=== PATIENT | male | born 1965 | race Caucasian/White ===

== ENCOUNTER → 2017-07-11 10:17 | Outpatient (CLI) | payer BC, SELFPAY ==
[2017-07-11 12:28] LABS: Anion Gap 8 (5-15); BUN 12 mg/dL (7-18); BUN/Creat Ratio 13.6 RATIO (10-20); Calcium,Total 8.6 mg/dL (8.5-10.1); Chloride 105 mmol/L (98-107); Cholesterol 177 mg/dL (200); Creatinine, Serum 0.88 mg/dL (0.70-1.30); EST Glomerular Filtration Rate 96 mL/min (>60); Est Glom Filt Rate - Afr Amer 117 mL/min (>60); Glucose 148 mg/dL (74-106); High Density Lipoprotein 53 mg/dL; PSA,Total - Annual Screen 1.01 ng/mL (0.00-4.00); Potassium 3.7 mmol/L (3.5-5.1); Sodium Level 139 mmol/L (136-145); Triglycerides 176 mg/dL; Very Low Density Lipoprotein 35 mg/dL (5-40)
== END ==
PROVIDERS: Family Provider Family Medicine; PCP Family Medicine; Visit Provider Family Medicine
DX: Z00.00 Encounter for general adult medical examination without abnormal findings (principal); Z12.5 Encounter for screening for malignant neoplasm of prostate; I10 Essential (primary) hypertension
CPT/HCPCS: 36415; 80048; 80061; 84153; G0103

== ENCOUNTER → 2018-07-30 08:25 | Outpatient (CLI) | payer OTHER, SELFPAY ==
[2018-07-30 10:34] LABS: ALB/GLOB Ratio 1.3 RATIO (0.9-2.4); AST(SGOT) 25 U/L (15-37); Alanine Aminotransfer ALT/SGPT 29 U/L (16-61); Alkaline Phosphatase 84 U/L (45-117); Anion Gap 6 (5-15); BUN 15 mg/dL (7-18); BUN/Creat Ratio 21.7 RATIO (10-20); Calcium,Total 8.9 mg/dL (8.5-10.1); Chloride 104 mmol/L (98-107); Creatinine, Serum 0.69 mg/dL (0.70-1.30); EST Glomerular Filtration Rate 127 mL/min (>60); Est Glom Filt Rate - Afr Amer 154 mL/min (>60); Globulin 3.1 g/dL (2.2-4.2); Glucose 81 mg/dL (74-106); Potassium 3.9 mmol/L (3.5-5.1); Protein, Total 7.1 g/dL (6.4-8.2); Sodium Level 140 mmol/L (136-145)
[2018-08-01 11:37] LABS: Rubeola IgG Ab > 300.0 AU/mL (Immune >29.9)
== END ==
PROVIDERS: Family Provider Family Medicine; PCP Family Medicine; Referring Provider Family Medicine; Visit Provider Family Medicine
DX: Z11.59 Encounter for screening for other viral diseases (principal); I10 Essential (primary) hypertension
CPT/HCPCS: 36415; 80053; 86765

== ENCOUNTER → 2020-07-29 09:07 | Outpatient (CLI) | payer OTHER, SELFPAY ==
[2016-09-11 06:55] VITALS: BMI 25.3
[2020-07-29 10:45] LABS: Vitamin D,25 Hydroxy 33.6 ng/mL
[2020-07-29 10:59] LABS: Anion Gap 4 (5-15); BUN 13 mg/dL (7-18); BUN/Creat Ratio 17.8 RATIO (10-20); Chloride 103 mmol/L (98-107); Cholesterol 204 mg/dL (200); Creatinine, Serum 0.73 mg/dL (0.70-1.30); EST Glomerular Filtration Rate 118 mL/min (>60); Est Glom Filt Rate - Afr Amer 143 mL/min (>60); Glucose 90 mg/dL (74-106); High Density Lipoprotein 56 mg/dL; PSA,Total - Annual Screen 2.26 ng/mL (0.00-4.00); Sodium Level 137 mmol/L (136-145); Triglycerides 112 mg/dL; Very Low Density Lipoprotein 22 mg/dL (5-40)
== END ==
PROVIDERS: PCP Family Medicine; Referring Provider Family Medicine; Visit Provider Family Medicine
DX: Z00.00 Encounter for general adult medical examination without abnormal findings (principal); Z12.5 Encounter for screening for malignant neoplasm of prostate
CPT/HCPCS: 36415; 80048; 80061; 82306; 84153; 84403; G0103

== ENCOUNTER → 2021-08-11 | Outpatient (CLI) | payer OTHER, SELFPAY ==
[2021-08-11 18:31] LABS: Anion Gap 6 (5-15); BUN 16 mg/dL (7-18); BUN/Creat Ratio 20.5 RATIO (10-20); Calcium,Total 9.5 mg/dL (8.5-10.1); Chloride 105 mmol/L (98-107); Cholesterol 218 mg/dL (200); Creatinine, Serum 0.78 mg/dL (0.70-1.30); EST Glomerular Filtration Rate 109 mL/min (>60); Est Glom Filt Rate - Afr Amer 132 mL/min (>60); Glucose 83 mg/dL (74-106); High Density Lipoprotein 61 mg/dL; Potassium 3.9 mmol/L (3.5-5.1); Sodium Level 139 mmol/L (136-145); Triglycerides 56 mg/dL; Very Low Density Lipoprotein 11 mg/dL (5-40)
== END | disposition home or self-care (01) ==
LOC: MFPLAB 14:36
PROVIDERS: PCP Family Medicine; Referring Provider Family Medicine; Visit Provider Family Medicine
DX: Z00.00 Encounter for general adult medical examination without abnormal findings (principal)
CPT/HCPCS: 36415; 80048; 80061

== ENCOUNTER → 2022-08-17 | Outpatient (CLI) | payer OTHER, SELFPAY ==
[2022-08-17 10:44] LABS: Anion Gap 7 (5-15); BUN 19 mg/dL (7-18); BUN/Creat Ratio 25.7 RATIO (10-20); Calcium,Total 9.3 mg/dL (8.5-10.1); Chloride 105 mmol/L (98-107); Cholesterol 239 mg/dL (200); Creatinine, Serum 0.74 mg/dL (0.70-1.30); EST Glomerular Filtration Rate 116 mL/min (>60); Est Glom Filt Rate - Afr Amer 140 mL/min (>60); Glucose 95 mg/dL (74-106); High Density Lipoprotein 64 mg/dL; PSA,Total - Annual Screen 2.53 ng/mL (0.00-4.00); Potassium 4.5 mmol/L (3.5-5.1); Sodium Level 143 mmol/L (136-145); Triglycerides 69 mg/dL; Very Low Density Lipoprotein 14 mg/dL (5-40)
== END | disposition home or self-care (01) ==
PROVIDERS: PCP Family Medicine; Visit Provider Family Medicine
DX: Z00.00 Encounter for general adult medical examination without abnormal findings (principal)
CPT/HCPCS: 36415; 80048; 80061; 84153; G0103

== ENCOUNTER → 2023-08-30 | Outpatient (CLI) | payer OTHER, SELFPAY ==
[2023-08-30 13:14] LABS: ALB/GLOB Ratio 1.1 RATIO (0.9-2.4); AST(SGOT) 21 U/L (15-37); Alanine Aminotransfer ALT/SGPT 32 U/L (16-61); Albumin, Serum 3.9 g/dL (3.2-5.0); Alkaline Phosphatase 83 U/L (45-117); Anion Gap 6 (5-15); BUN 21 mg/dL (7-18); BUN/Creat Ratio 25.4 RATIO (10-20); Calcium,Total 9.8 mg/dL (8.5-10.1); Chloride 102 mmol/L (98-107); Cholesterol 224 mg/dL (200); Creatinine, Serum 0.83 mg/dL (0.70-1.30); EST Glomerular Filtration Rate 101 mL/min (>60); Est Glom Filt Rate - Afr Amer 122 mL/min (>60); Globulin 3.7 g/dL (2.2-4.2); Glucose 104 mg/dL (74-106); High Density Lipoprotein 70 mg/dL; PSA,Total - Annual Screen 4.77 ng/mL (0.00-4.00); Potassium 4.2 mmol/L (3.5-5.1); Protein, Total 7.6 g/dL (6.4-8.2); Sodium Level 134 mmol/L (136-145); Triglycerides 78 mg/dL; Very Low Density Lipoprotein 16 mg/dL (5-40)
== END | disposition home or self-care (01) ==
LOC: MFPLAB 09:42
PROVIDERS: PCP Family Medicine; Visit Provider Family Medicine
DX: Z00.00 Encounter for general adult medical examination without abnormal findings (principal)
CPT/HCPCS: 36415; 80053; 80061; 84153; 84403; 84443; G0103

== ENCOUNTER → 2024-12-11 | Outpatient (CLI) | payer OTHER, SELFPAY ==
[2024-12-11 17:39] LABS: Hematocrit 43.1 % (40-54); Hemoglobin 14.3 g/dL (13.0-16.5); Immature Granulocytes Count 0.020 X10^3/uL (0.0-0.0); Mean Corp Hgb Conc 33.2 g/dL (32-36); Mean Corpuscular Volume 92.9 fL (80-94); Mean Platelet Vol. 9.6 fl (6.2-12.0); NRBC Flagged by Analyzer 0 % (0-5); Platelet Count 277 K/mm3 (150-450); RBC Distribution Width CV 13.1 % (11.6-14.6); RBC Distribution Width SD 44.5 fl (35.1-43.9); Red Blood Count 4.64 M/mm3 (4.6-6.2); White Blood Count 7.6 K/mm3 (4.4-11.0)
[2024-12-11 18:46] LABS: AST(SGOT) 21 U/L (<=37); Alanine Aminotransfer ALT/SGPT 18 U/L (<=46); Albumin, Serum 4.4 g/dL (3.5-5.0); Alkaline Phosphatase 86 U/L (40-129); Anion Gap 11 (5-15); BUN 17 mg/dL (4-19); BUN/Creat Ratio 19.7 RATIO (10-20); Calcium,Total 9.6 mg/dL (7.6-11.0); Carbon Dioxide 26.9 mmol/L (21.0-32.0); Chloride 100 mmol/L (98-108); Cholesterol 243 mg/dL (<=200); Globulin 2.8 g/dL (2.2-4.2); Glucose 91 mg/dL (70-99); Low Density Lipoprotein Calc. 158 mg/dL; Magnesium 2.0 mg/dL (1.5-2.2); PSA,Total - Annual Screen 1.81 ng/mL (0.02-4.00); Potassium 4.3 mmol/L (3.3-5.1); Triglycerides 82 mg/dL; Very Low Density Lipoprotein 16 mg/dL (5-40); cholesterol:hdl ratio screen 3.54
== END | disposition home or self-care (01) ==
LOC: MFPLAB 15:12
PROVIDERS: PCP Family Medicine; Visit Provider Family Medicine
DX: Z00.00 Encounter for general adult medical examination without abnormal findings (principal); R00.2 Palpitations
CPT/HCPCS: 36415; 80053; 80061; 83735; 84153; 84443; 85025; G0103

== ENCOUNTER → 2025-02-05 | Outpatient (CLI) | payer OTHER, SELFPAY ==
--- NOTE | 2025-02-05 14:45 | ECHOD_ITS ---
Reason For Study Reason For Study: SOB, ATRIAL FIB-FLUTTER Procedure This was a 2D Doppler, Color Flow transthoracic echocardiogram. Exam performed in department. Left Ventricle Normal LV size. The estimated ejection fraction is 55 %. No evidence for diastolic dysfunction. No regional wall motion abnormalities noted. Right Ventricle Normal RV size. Normal systolic function. Atria The left and right atria are normal. No doppler evidence for ASD. Mitral Valve There is no mitral valve stenosis. Trivial mitral valve insufficiency. Tricuspid Valve There is no tricuspid stenosis. Trivial tricuspid valve insufficiency. Unable to estimate RV systolic pressure due to insufficient tricuspid regurgitant envelope. Aortic Valve There is no aortic stenosis. No aortic valve insufficiency. Pulmonic Valve There is no pulmonic valvular stenosis. Trivial pulmonic valve insufficiency. Great Vessels Normal sized aortic root. Pericardium/Pleural No pericardial effusion. MMode/2D Measurements & Calculations LVIDd: 4.8 cm IVSd: 1.0 cm Ao root diam: 3.4 cm LVIDs: 3.1 cm LVPWd: 1.0 cm RVDd: 3.0 cm FS: 36.2 % LAV(MOD-bp): 53.4 ml LVAd ap4: 32.8 cm2 SV(MOD-sp4): 64.8 ml LAV(MOD-bp) Indexed: 28.4 ml/m2 LVLd ap4: 8.5 cm SI(MOD-sp4): 34.5 ml/m2 LAV(MOD-sp2): 48.5 ml EDV(MOD-sp4): 107.3 ml LAV(MOD-sp4): 50.1 ml EDV(sp4-el): 107.5 ml LVAs ap4: 18.6 cm2 LVLs ap4: 7.2 cm ESV(MOD-sp4): 42.4 ml ESV(sp4-el): 41.0 ml EF(MOD-sp4): 60.5 % EF(sp4-el): 61.8 % SV(sp4-el): 66.5 ml LA A4 area: 19.1 cm2 LA dimension(2D): 3.2 cm RA A4 area: 17.3 cm2 TAPSE: 2.2 cm Time Measurements MV dec time: 0.21 sec Doppler Measurements & Calculations MV E max gurpreet: 67.3 cm/sec Lat Peak E' Gurpreet: 11.9 cm/sec Med Peak E' Gurpreet: 8.9 cm/sec MV A max gurpreet: 57.4 cm/sec E/E' lat: 5.6 E/E' med: 7.6 MV E/A: 1.2 Ao V2 max: 123.1 cm/sec LV V1 max: 90.2 cm/sec PA V2 max: 84.1 cm/sec Ao max P.1 mmHg LV V1 max P.3 mmHg TR max gurpreet: 227.4 cm/sec TR max P.7 mmHg ECHO/Echo Complete Interpretation Summary The estimated ejection fraction is 55 %. No evidence for diastolic dysfunction. Trivial mitral valve insufficiency. Ordering Physician: Anil Rutledge Referring Physician: KAREN TOUSSAINT Performed By: Zaina Candelario RDCS
--- OUTSIDE RECORDS SUMMARY | 2025-02-05 17:06 | XMS RPT_ITS | CCD ---
Author Organization [facility] Inform ion Partnership [facility] Care Team Providers Care Ultrasound Manager Name Role Phone GEE Blackwood RN, Fanny Mcelroy Unavailable Unavailabl jayme Blackwood RN RN, Fanny Mcelroy Unavailable Unavailabl e Christina MOSS, Rosalie L Unavailable Matt MOSS, Alexandru Palafox Unavailable GEE Blackwood RN, Fanny Mcelroy Unavailable Unavailabl e Pending, Provider Primary Care Unavailable Dr. Haile Fischer Attending Unavail able Amna MOSS, Dr. Hess Primary Care Physician [phone] Amna MOSS, Dr. Hess Attending Physician [phone] Anil Rutledge Attending Anil Schaffer Referring Unavailable Deshawn Woo Primary Care Unavailable Deshawn Woo Primary Care Unavailable Amna, Deshawn Attending Unavailable Anil Rutledge Attending Unavailable Amna, Deshawn Primary Care Unavailable Deshawn Woo Referring Unavailable Amna MOSS, Dr. Hess Referring Provider [phone] Maty MOSS, Dr. Ma Attending Physician [phone] Medications Current Medications Medication Drug Class(es) Dates Sig (Normalized) Sig (Original) acetaminophen 325 mg / oxyCODONE hydrochloride 5 mg oral tablet (3 sources) Opioid Agonist Start: 09-11-2016 take 1 tablet by mouth every four hours as needed Oxycodone-Acetami nophen Active 1 - 2 TABLET PO EVERY 4 HOURS NEEDED September 11, 2016 9:35am Start: 09-11-2016 aspirin 325 mg oral tablet (1 source) Platelet Aggregation Inhibitor, Nonsteroidal Anti-inflammatory Drug Start: 01-08-2025 take 1 tablet by mouth once daily Blood sugar support (1 source) Start: 12-31-2024 Calcium 26-Vit D3-Magnesium 15 167 mg calcium- 1.67 mcg-83 mg capsule (1 source) Start: 12-31-2024 Cholesterol Shield (1 source) Start: 12-31-2024 magnesium citrate 100 mg oral tablet (1 source) Start: 12-31-2024 take 1 tablet by mouth twice daily 24 hr metoprolol succinate 25 mg extended release oral tablet (2 sources) beta-Adrenergic Jd Start: 01-08-2025 End: 01-08-2025 take 1 tablet by mouth twice daily MSM (1 source) Start: 12-31-2024 NAC (1 source) Start: 12-31-2024 niacin 500 mg oral tablet (1 source) Nicotinic Acid Start: 12-31-2024 red yeast rice 600 mg oral capsule (1 source) Start: 12-31-2024 take 1 capsule by mouth twice daily Htrtgz-Tfgue-Xtmdknbw -Dextrose (Pediatric Electrolyte) 10.6-4.7 mEq/8.5 gram powder in packet (1 source) Start: 12-31-2024 Soybean, Fermented (Nattokinase) 50 mg capsule (1 source) Start: 12-31-2024 take 1 capsule by mouth once daily Sympt-X Plus (1 source) Start: 12-31-2024 ubiquinol 100 mg oral capsule (1 source) Start: 12-31-2024 take 1 capsule by mouth twice daily Ultra Prostate Formula (1 source) Start: 12-31-2024 Completed/Discontinued Medications Medication Drug Class(es) Dates Sig (Normalized) Sig (Original) amLODIPine 5 mg oral tablet (8 sources) Dihydropyridine Calcium Channel Jd Start: 02-27-20 End: 01-09-20 take 1 tablet by mouth once daily Amlodipine 5 MG tablet Discontinued 5 mg PO DAILY February 27, 2016 1:00am January 08, 2025 8:57am apixaban 5 mg oral tablet (1 source) Factor Xa Inhibitor Start: 01-09-20 End: 01-09-20 take 1 tablet by mouth twice daily Apixaban (Eliquis) 5 mg tablet Discontinued 5 mg PO TWICE A DAY January 08, 2025 12:00am January 08, 2025 9:34am ELASTIC BANDAGES [employer] SUPPORTS (3 sources) Start: 08-09-19 End: 11-09-19 [facility] [place] hip size is 32 inches [employer] [id number] Rosalie Vasquez MD ELASTIC BANDAGES [employer] SUPPORTS (4 sources) Start: 08-09-19 End: 11-09-19 [facility] [place] Patient hip size is 32 inches [employer] [id number] Rosalie Vasquez MD hydroCHLOROthiazide 25 mg oral tablet (8 sources) Thiazide Diuretic Start: 02-27-20 End: 01-09-20 take 1 tablet by mouth once daily Hydrochlorothiazide 25 MG tablet Discontinued 25 mg PO DAILY February 27, 2016 1:00am January 08, 2025 9:34am meclizine hydrochloride 25 mg oral tablet (5 sources) Antiemetic MECLIZINE HCL 25 MG TABS as needed for motion sickness MECLIZINE HCL [id number] Fanny Blackwood RN RN sildenafil 100 mg oral tablet (5 sources) Phosphodiesterase 5 Inhibitor VIAGRA 100 MG TABS a s needed SILDENAFIL CITRATE [id number] Fanny Blackwood RN RN simvastatin 10 mg oral tablet (8 sources) HMG-CoA Reductase Inhibitor Start: 02-27-20 End: 01-09-20 take 1 tablet by mouth once daily Simvastatin 10 MG tablet Discontinued 10 mg PO DAILY February 27, 2016 1:00am January 08, 2025 8:56am Problems Problem Classification Problem Date Documented Da te Episodic/Chronic Abdominal hernia (8 sources) Right inguinal hernia ; Translations: [Unilateral inguinal hernia, without obstruction or gangrene, not specified as recurrent] Onset: 08-07-2016 08-07-2016 Episodic Cardiac dysrhythmias (4 sources) Paroxysmal atrial fibrillation; Translations: [Paroxysmal atrial fibrillation] Onset: 01-08-2025 01-08-2025 Chronic Cardiac dysrhythmias (4 sources) Palpitations; Translations: [Palpitations] Onset: 01-08-2025 12-31-2024 Episodic Disorders of lipid metabolism (8 sources) Hyperlipidemia; Translations: [Hyperlipidemia, unspecified] Onset: 01-24-2016 01-24-2016 Chronic Essential hypertension (5 sources) Benign essential hypertension; Translations: [Essential (primary) hypertension] Onset: 01-24-2016 01-24-2016 Chronic Other lower respiratory disease (2 sources) Shortness of breath; Translations: [Shortness of breath] Onset: 01-08-2025 Episodic Other screening for suspected conditions (not mental disorders or infectious disease) (3 sources) Patient encounter status; Translations: [Encounter for screening for malignant neoplasm of colon] 03-05-2016 Episodic Unclassified (3 sources) Screening for malignant neoplasm of colon ; Translations: [Encounter for screening for malignant neoplasm of colon] Onset: 01-25-2016 01-25-2016 Results Test Name Value Interpretation Reference Range Facility Cardiology Visit Reporton Cardiology Visit Report [facility] [address] [place] [address] OFFICE VISIT Date of Service: 01/08/25 MR#: [id number] Acct: [id number] Name: ROBER VALENCIA Rep #: [id number] : 1965 Provider: Dr. Anil bates MD Age/Sex: 59/M Location: [facility] [place] Status: Signed HPI HPI History of Present Illness Details: Patient is very pleasant 59-year-old white male that comes with his today for new patient visit for paroxysmal atrial fibrillation. The patient started to notice back in the summer that when he was working outside and was hot and probably dehydrated that he had fluttering in his chest. He subsequently underwent a 7-day event monitor that showed 7% of the time he was in atrial fibrillation with the longest episode lasting 5 hours. The patient was started on Eliquis and has been on metoprolol now for about a week. He was noticing intermittent episodes until he started taking the metoprolol and now he has not noticed any over the last week. He continues to stay well-hydrated with electrolytes, he has stopped multiple holistic supplements that he was on, and he is stopped alcohol and limited his caffeine. Patient does not have a significant family history he is not hypertensive he is hyperlipidemic and he is on red yeast rice. The patient is not a smoker and he is not diabetic. The patient has not had an echocardiogram. His ECG in the office today shows sinus bradycardia at 50 bpm and otherwise is normal. Patient reports he is doing very well in his home environment he occasionally notices some left lateral chest discomfort this is not with activity is only when he is resting and thinking about things. He is able to exercise and do his actives a day living without any restrictions. Intake Vital Signs 01/08/25 06:56 Height 5 ft 9 in Weight: 160 lb BMI 23.6 BP 121/84 H Blood Pressure Location Lt brachial Position Sitting Respiration 18 Pulse 50 L Pulse Source Monitor Pulse Oximetry (%) 99 Intake Visit Reasons: PALPITATIONS VS. 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: No Is patient in pain?: No Allergies No Known Allergies Allergy (Verified 01/08/25 08:57) Medications ???Medication ???Instructions ???Recorded ???Confirmed ???Type oxycodone-acetamino phen 5 mg-325 1 - 2 tab PO Q4H PRN PRN Pain #15 09/11/16 01/08/25 Rx mg tablet tabs Blood sugar support PO DAILY 12/31/24 12/31/24 History Cholesterol Shield PO DAILY 12/31/24 12/31/24 History MSM PO BID 12/31/24 12/31/24 History NAC PO DAILY 12/31/24 01/08/25 History Sympt-X Plus PO BID 12/31/24 12/31/24 History Ultra Prostate Formula PO DAILY 12/31/24 12/31/24 History calcium 167 mg-vitamin D3 1.67 1 cap PO DAILY 12/31/24 12/31/24 H istory mcg-magnesium 83 mg capsule coQ10 (ubiquinol) 100 mg capsule 100 mg PO BID 12/31/24 12/31/24 Hi story (Qunol Erich CoQ10) magnesium citrate 100 mg tablet 100 mg PO BID 12/31/24 12/31/24 Hi story niacin 500 mg tablet 250 mg PO QDAY 12/31/24 12/31/24 H istory red yeast rice 600 mg capsule 600 mg PO BID 12/31/24 12/31/24 Hi story yhgmkx-yilvpkljs-mv loride-dextrose g PO DAILY 12/31/24 12/31/24 His tory 10.6 mEq-4.7mEq/8.5 gram powdr pack (Pediatric Electrolyte) soybean, fermented 50 mg capsule 100 mg PO DAILY 12/31/24 12/31/24 History (Nattokinase) aspirin 325 mg tablet (Dino 325 mg PO QDAY #30 tabs 01/08/25 1 Rx Aspirin) metoprolol succinate 25 mg 25 mg PO BID #180 tabs 01/08/25 Rx tablet,extended release 24 hr Have you fallen in the past year?: No PFSH Medical History Palpitations Surgical History History of hernia repair Social History Smoking Status: Former smoker alcohol intake: current substance use type: does not use ROS Const Const: Negative for fatigue, weakness, headache(s) or frequent falls Eyes Eyes: Negative for blurry vision ENT ENT: Negative for headache(s), dizziness or Nosebleed/epistaxis Cardio Chest Pain: No Palpitations: No Edema: None Muscle aches with walking: None Resp Respiratory: Negative for SOB with activity, SOB at rest or SOB orthopnea SOB lying down GI GI: Negative nausea, vomiting, heartburn, bright, red blood in stools or black,tarry stools : Negative for hematuria Neuro Neuro: Negative for dizziness, lightheadedness, near syncope, syncope, frequent falls, headache(s), weakness or blurry vision Endo Endo: Negative for fatigue Cardiology Exam Const Appearance: cooperative, healthy appearing, comfortable, no acute distress and well developed Head Head: normal to inspection (more content not included)... Normal [facility] Absolute lymphocyte countOrd ered By: Deshawn Woo on 12-11-2024 Lymphocytes Auto (Unsp spec) [#/Vol] 2.82 10*3/uL 0.83-4.51 [facility] Absolute neutrophil countOrd ered By: Deshawn Woo on 12-11-2024 Neutrophils (Bld) [#/Vol] 3.7 10*3/uL 2.0-7.7 [facility] Anion gap in Serum or Plasma Ordered By: Deshawn Woo on 12-11-2024 Anion gap [Moles/Vol] 11 mmol/L 5-15 [facility] Automated lymphocyte count a s percentage of total leukocytesOrdered By: Deshawn Woo on 12-11-2024 Lymphocytes/100 WBC Auto (Unsp spec) 37.1 % - [facility] BUN/creatinine ratioOrdered By: Deshawn Woo on 12-11-2024 Urea nitrogen/Creatinine [Mass ratio] 19.7 mg/mg 10-20 [facility] Basophil percentageOrdered B y: Deshawn Woo on 12-11-2024 Basophils/100 WBC (Bld) 0.7 % 0-1 [facility] Bilirubin, totalOrdered By: Deshawn Woo on 12-11-2024 Bilirubin [Mass/Vol] 0.59 mg/dL 0.00-1.30 [facility] CBC W/Diff, Automatedon 11-23 Absolute Lymph 2.82 X10 3/uL Normal 0.83-4.51 [facility] Comment on above: Performed By: #### L 501.5200, L500.4050, L501.9910, L100.0100, L501.9520, L500.4100 #### [facility] [address] [place], [address] Absolute Neut 3.7 X10 3/uL Normal 2.0-7.7 [facility] Comment on above: Performed By: #### L 501.5200, L500.4050, L501.9910, L100.0100, L501.9520, L500.4100 #### [facility] [address] [place], [address] Basophils/100 WBC (Bld) 0.7 % Normal 0-1 [facility] Comment on above: Performed By: #### L 501.5200, L500.4050, L501.9910, L100.0100, L501.9520, L500.4100 #### [facility] [address] [place], [address] Eosinophils/100 WBC (Bld) 2.8 % Normal 0-5 [facility] Comment on above: Performed By: #### L 501.5200, L500.4050, L501.9910, L100.0100, L501.9520, L500.4100 #### [facility] [address] [place], [address] Erythrocyte distribution width (RBC) [Ratio] 13.1 % Normal 11.6-14.6 [facility] Comment on above: Performed By: #### L 501.5200, L500.4050, L501.9910, L100.0100, L501.9520, L500.4100 #### [facility] [address] [place], [address] Hematocrit (Bld) [Volume fraction] 43.1 % Normal 40-54 [facility] Comment on above: Performed By: #### L 501.5200, L500.4050, L501.9910, L100.0100, L501.9520, L500.4100 #### [facility] [address] [place], [address] Hemoglobin (Bld) [Mass/Vol] 14.3 g/dL Normal 13.0-16.5 [facility] Comment on above: Performed By: #### L 501.5200, L500.4050, L501.9910, L100.0100, L501.9520, L500.4100 #### [facility] [address] [place], [address] IG% 0.300 Normal 0.0-0.9 [facility] Comment on above: Result Comment: IG% - Immature Granulocytes (promyelocytes, myelocytes and metamyelocytes) > 1% indicates that a LEFT SHIFT is Present. Performed By: #### L 501.5200, L500.4050, L501.9910, L100.0100, L501.9520, L500.4100 #### [facility] [address] [place], [address] Lymphocytes/100 WBC (Bld) 37.1 % Normal 19-41 [facility] Comment on above: Performed By: #### L 501.5200, L500.4050, L501.9910, L100.0100, L501.9520, L500.4100 #### [facility] [address] [place], [address] MCH (RBC) [Entitic mass] 30.8 pg Normal 27.0-32.0 [facility] Comment on above: Performed By: #### L 501.5200, L500.4050, L501.9910, L100.0100, L501.9520, L500.4100 #### [facility] [address] [place], [address] MCHC (RBC) [Mass/Vol] 33.2 g/dL Normal 32-36 [facility] Comment on above: Performed By: #### L 501.5200, L500.4050, L501.9910, L100.0100, L501.9520, L500.4100 #### [facility] [address] [place], [address] MCV (RBC) [Entitic vol] 92.9 fL Normal 80-94 [facility] Comment on above: Performed By: #### L 501.5200, L500.4050, L501.9910, L100.0100, L501.9520, L500.4100 #### [facility] [address] [place], [address] Monocytes/100 WBC (Bld) 10.3 % High 0-10 [facility] Comment on above: Performed By: #### L 501.5200, L500.4050, L501.9910, L100.0100, L501.9520, L500.4100 #### [facility] [address] [place], [address] Neutrophils/100 WBC (Bld) 48.8 % Normal 47-70 [facility] Comment on above: Performed By: #### L 501.5200, L500.4050, L501.9910, L100.0100, L501.9520, L500.4100 #### [facility] [address] [place], [address] Nucleated RBC (Bld) [#/Vol] 0 10*3/uL Normal 0-5 [facility] Comment on above: Performed By: #### L 501.5200, L500.4050, L501.9910, L100.0100, L501.9520, L500.4100 #### [facility] [address] [place], [address] Platelet mean volume (Bld) [Entitic vol] 9.6 fL Normal 6.2-12.0 [facility] Comment on above: Performed By: #### L 501.5200, L500.4050, L501.9910, L100.0100, L501.9520, L500.4100 #### [facility] [address] [facility] [place], [address] Platelets (Bld) [#/Vol] 277 10*3/uL Normal 150-450 [facility] Comment on above: Performed By: #### L 501.5200, L500.4050, L501.9910, L100.0100, L501.9520, L500.4100 #### [facility] [address], [address] RBC (Bld) [#/Vol] 4.64 10*6/uL Normal 4.6-6.2 [facility] Comment on above: Performed By: #### L 501.5200, L500.4050, L501.9910, L100.0100, L501.9520, L500.4100 #### [facility] [address] [place], [address] RDW SD 44.5 fl High 35.1-43.9 [facility] Comment on above: Performed By: #### L 501.5200, L500.4050, L501.9910, L100.0100, L501.9520, L500.4100 #### [facility] [address] [place], [address] WBC (Bld) [#/Vol] 7.6 10*3/uL Normal 4.4-11.0 [facility] Comment on above: Performed By: #### L 501.5200, L500.4050, L501.9910, L100.0100, L501.9520, L500.4100 #### [facility] [address] [place], [address] Calculated very low density lipoprotein (VLDL) cholesterol measurementOrdered By: Deshawn Woo on 12-11-2024 Calculated very low density lipoprotein (VLDL) cholesterol measurement 16 mg/dL 5-40 [facility] Carbon dioxide, total [Moles /volume] in Central venous bloodOrdered By: Deshawn Woo on 12-11-2024 CO2 [Moles/Vol] 26.9 mmol/L 21.0-32.0 [facility] Chloride assayOrdered By: Hema Woo on 12-11-2024 Chloride [Moles/Vol] 100 mmol/L 98-108 [facility] Comprehensive Metabolic Prof ilon 12-11-2024 Albumin [Mass/Vol] 4.4 g/dL Normal 3.5-5.0 [facility] Comment on above: Performed By: #### L 501.5200, L500.4050, L501.9910, L100.0100, L501.9520, L500.4100 #### [facility] [address] [place], [address] Albumin/Globulin [Mass ratio] 1.5 {ratio} Normal 0.9-2.4 [facility] Comment on above: Performed By: #### L 501.5200, L500.4050, L501.9910, L100.0100, L501.9520, L500.4100 #### [facility] [address] [place], [address] ALK PHOS 86 U/L Normal 40-129 [facility] Comment on above: Performed By: #### L 501.5200, L500.4050, L501.9910, L100.0100, L501.9520, L500.4100 #### [facility] [address] [place] [place] [place], [address] ALT [Catalytic activity/Vol] 18 U/L Normal <=46 [facility] Comment on above: Performed By: #### L 501.5200, L500.4050, L501.9910, L100.0100, L501.9520, L500.4100 #### [facility] [address] [place], [address] AST [Catalytic activity/Vol] 21 U/L Normal <=37 [facility] Comment on above: Performed By: #### L 501.5200, L500.4050, L501.9910, L100.0100, L501.9520, L500.4100 #### [facility] [address] [place], [address] Bilirubin [Mass/Vol] 0.59 mg/dL Normal 0.00-1.30 [facility] Comment on above: Performed By: #### L 501.5200, L500.4050, L501.9910, L100.0100, L501.9520, L500.4100 #### [facility] [address] [place], [address] BUN/CRE 19.7 RATIO Normal 10-20 [facility] Comment on above: Performed By: #### L 501.5200, L500.4050, L501.9910, L100.0100, L501.9520, L500.4100 #### [facility] [address] [place], [address] Calcium [Mass/Vol] 9.6 mg/dL Normal 7.6-11.0 [facility] Comment on above: Performed By: #### L 501.5200, L500.4050, L501.9910, L100.0100, L501.9520, L500.4100 #### [facility] [address] [place], [address] Chloride [Moles/Vol] 100 mmol/L Normal 98-108 [facility] Comment on above: Performed By: #### L 501.5200, L500.4050, L501.9910, L100.0100, L501.9520, L500.4100 #### [facility] [address] [place], [address] CO2 [Moles/Vol] 26.9 mmol/L Normal 21.0-32.0 [facility] Comment on above: Performed By: #### L 501.5200, L500.4050, L501.9910, L100.0100, L501.9520, L500.4100 #### [facility] [address] [place], [address] Creatinine [Mass/Vol] 0.87 mg/dL Normal 0.70-1.20 [facility] Comment on above: Performed By: #### L 501.5200, L500.4050, L501.9910, L100.0100, L501.9520, L500.4100 #### [facility] [address] [place], [address] GAP 11 Normal 5-15 [facility] Comment on above: Performed By: #### L 501.5200, L500.4050, L501.9910, L100.0100, L501.9520, L500.4100 #### [facility] [address] [place], [address] GFR/1.73 sq M.predicted among non-blacks MDRD (S/P/Bld) [Vol rate/Area] 99 mL/min/{1.73_m2} Normal >60 [facility] Comment on above: Result Comment: mL/m in/1.73m2 CKD-EPI Creatinine Equation (2020) Performed By: #### L 501.5200, L500.4050, L501.9910, L100.0100, L501.9520, L500.4100 #### [facility] [address] [place], [address] Globulin (S) [Mass/Vol] 2.8 g/dL Normal 2.2-4.2 [facility] Comment on above: Performed By: #### L 501.5200, L500.4050, L501.9910, L100.0100, L501.9520, L500.4100 #### [facility] [address] [place], [address] Glucose [Mass/Vol] 91 mg/dL Normal 70-99 [facility] Comment on above: Performed By: #### L 501.5200, L500.4050, L501.9910, L100.0100, L501.9520, L500.4100 #### [facility] [address] [place], [address] Potassium [Moles/Vol] 4.3 mmol/L Normal 3.3-5.1 [facility] Comment on above: Performed By: #### L 501.5200, L500.4050, L501.9910, L100.0100, L501.9520, L500.4100 #### [facility] [address] [place], [address] Sodium [Moles/Vol] 138 mmol/L Normal 133-145 [facility] Comment on above: Performed By: #### L 501.5200, L500.4050, L501.9910, L100.0100, L501.9520, L500.4100 #### [facility] [address] [place], [address] T PROT 7.2 g/dL Normal 5.9-8.4 [facility] Comment on above: Performed By: #### L 501.5200, L500.4050, L501.9910, L100.0100, L501.9520, L500.4100 #### [facility] [address] [place], [address] Urea nitrogen [Mass/Vol] 17 mg/dL Normal - [facility] Comment on above: Performed By: #### L 501.5200, L500.4050, L501.9910, L100.0100, L501.9520, L500.4100 #### [facility] [address] [place], [place], [address] Eosinophil percentageOrdered By: Deshawn Woo on 12-11-2024 Eosinophils/100 WBC (Bld) 2.8 % 0-5 [facility] Erythrocyte distribution wid th ratioOrdered By: Deshawn Woo on 12-11-2024 Erythrocyte distribution width (RBC) [Ratio] 13.1 % 11.6-14.6 [facility] Erythrocyte distribution wid th standard deviationOrdered By: Deshawn Woo on 12-11-2024 Erythrocyte distribution width (RBC) [Ratio] 44.5 fl High 35.1-43.9 [facility] Glomerular filtration rate ( GFR) estimation/1.73 sq m using serum, plasma, or whole bOrdered By: Deshawn Woo on 12-11-2024 GFR/1.73 sq M.predicted among non-blacks MDRD (S/P/Bld) [Vol rate/Area] 99 mL/min/{1.73_m2} >60 [facility] Comment on above: mL/min/1.73m2 CKD-EP I Creatinine Equation (2020) Hematocrit Auto (Bld) [Volum e fraction]Ordered By: Deshawn Woo on 12-11-2024 Hematocrit (Bld) [Volume fraction] 43.1 % 40-54 [facility] Hemoglobin measurementOrdere d By: Deshawn Woo on 12-11-2024 Hemoglobin (Bld) [Mass/Vol] 14.3 g/dL 13.0-16.5 [facility] Immature granulocytes/100 WB C Auto (Bld)Ordered By: Deshawn Woo on 12-11-2024 Immature granulocytes/100 WBC (Bld) 0.300 % 0.0-0.9 [facility] Comment on above: IG% - Immature Granu locytes (promyelocytes, myelocytes and metamyelocytes) > 1% indicates that a LEFT SHIFT is Present. LDL calc ser/plasOrdered By: Deshawn Woo on 12-11-2024 Cholesterol in LDL [Mass/Vol] 158 mg/dL [facility] Comment on above: Ifclzvrjys=141-587 m g/dL & Higher Umjq=303 mg/dL or greaterFriedwald Equation for LDL-C Laboratory - Chemistry and C hemistry - challengeOrdered By: Deshawn Woo on 12-11-2024 AST [Catalytic activity/Vol] 21 U/L <38 [facility] Lipid Profileon 12-11-2024 CHOL:HDL 3.54 Normal [facility] Comment on above: Performed By: #### L 501.5200, L500.4050, L501.9910, L100.0100, L501.9520, L500.4100 #### [facility] [address] [place], [address] Cholesterol [Mass/Vol] 243 mg/dL High <=200 [facility] Comment on above: Result Comment: Chol esterol level, Desirable <200 mg/dL Borderline high cholesterol 200-239 mg/dL High cholesterol >=240 mg/dL Recommendations of the NCEP Adult Treatment Panel for the following risk-cutoff thresholds for the [place] population. Performed By: #### L 501.5200, L500.4050, L501.9910, L100.0100, L501.9520, L500.4100 #### [facility] [address] [place], [address] Cholesterol in HDL [Mass/Vol] 69 mg/dL Normal [facility] Comment on above: Result Comment: Chaya onal Cholesterol Education Program (NCEP) guidelines: <40 mg/dL: Low HDL-cholesterol (major risk factor for CHD) >= 60 mg/dL: High HDL-cholesterol (negative risk factor for CHD) HDL-cholesterol is affected by a number of factors, e.g. smoking, exercise, hormones, sex and age. Performed By: #### L 501.5200, L500.4050, L501.9910, L100.0100, L501.9520, L500.4100 #### [facility] [address] [place], [address] Cholesterol in LDL [Mass/Vol] 158 mg/dL Normal [facility] Comment on above: Result Comment: Bord ctzsqx=688-852 mg/dL Higher Vldo=233 mg/dL or greater Friedwald Equation for LDL-C Performed By: #### L 501.5200, L500.4050, L501.9910, L100.0100, L501.9520, L500.4100 #### [facility] [address] [place], [address] Cholesterol in VLDL [Mass/Vol] 16 mg/dL Normal 5-40 [facility] Comment on above: Performed By: #### L 501.5200, L500.4050, L501.9910, L100.0100, L501.9520, L500.4100 #### [facility] [address] [place], [address] Triglyceride [Mass/Vol] 82 mg/dL Normal [facility] Comment on above: Result Comment: The drugs N-Acetylcysteine and Metamizole may falsely depress this assay. Normal range: <150 mg/dL Borderline High: 150-199 mg/dL High: 200-499 mg/dL Very High: >500 mg/dL Performed By: #### L 501.5200, L500.4050, L501.9910, L100.0100, L501.9520, L500.4100 #### [facility] [address] [place], [address] MCV (mean corpuscular volume ) determinationOrdered By: Deshawn Woo on 12-11-2024 MCV (RBC) [Entitic vol] 92.9 fL 80-94 [facility] Magnesiumon 12-11-2024 Magnesium [Mass/Vol] 2.0 mg/dL Normal 1.5-2.2 [facility] Comment on above: Performed By: #### L 501.5200, L500.4050, L501.9910, L100.0100, L501.9520, L500.4100 #### [facility] [address] [place], [address] Magnesium measurement (mass/ volume)Ordered By: Deshawn Woo on 12-11-2024 Magnesium (Unsp spec) [Mass/Vol] 2.0 mg/dL 1.5-2.2 [facility] Mean corpuscular hemoglobin (MCH) determinationOrdered By: Deshawn Woo on 12-11-2024 MCH (RBC) [Entitic mass] 30.8 pg 27.0-32.0 [facility] Mean corpuscular hemoglobin concentration (MCHC) determinationOrdered By: Deshawn Woo on 12-11-2024 MCHC (RBC) [Mass/Vol] 33.2 g/dL 32-36 [facility] Mean platelet volume determi nationOrdered By: Deshawn Woo on 12-11-2024 Platelet mean volume (Bld) [Entitic vol] 9.6 fL 6.2-12.0 [facility] Monocyte percentageOrdered B y: Deshawn Woo on 12-11-2024 Monocytes/100 WBC (Bld) 10.3 % High 0-10 [facility] Neutrophil percentageOrdered By: Deshawn Woo on 12-11-2024 Neutrophils/100 WBC (Bld) 48.8 % 47-70 [facility] Nucleated red blood cell per centageOrdered By: Deshawn Woo on 12-11-2024 Nucleated RBC/100 WBC (Bld) [Ratio] 0 % 0-5 [facility] PSA,Total - Annual Screenon 12-11-2024 PSA,TOT SCREEN 1.81 ng/mL Normal 0.02-4.00 [facility] Comment on above: Result Comment: This test was performed using the [employer] tPSA method. Measured values of a patient??sample can vary depending on the testing procedure used. PSA values determined on patient samples by different testing procedures cannot be used interchangeably. If there is a change in PSA assays while monitoring therapy, sequential testing should be performed to confirm baseline values. Performed By: #### L 501.5200, L500.4050, L501.9910, L100.0100, L501.9520, L500.4100 #### [facility] [address] [place], [address] Platelet countOrdered By: Hema Woo on 12-11-2024 Platelets (Bld) [#/Vol] 277 10*3/uL 150-450 [facility] Potassium measurement (mass/ volume)Ordered By: Deshawn Woo on 12-11-2024 Potassium (Unsp spec) [Mass/Vol] 4.3 mmol/L 3.3-5.1 [facility] RBC Auto (Bld) [#/Vol]Ordere d By: Deshawn Woo on 12-11-2024 RBC (Bld) [#/Vol] 4.64 10*6/uL 4.6-6.2 [facility] Screening total cholesterol/ high density lipoprotein (HDL) cholesterol ratioOrdered By: Deshawn Woo on 12-11-2024 Cholesterol.total/Choles terol in HDL [Mass ratio] 3.54 {ratio} [facility] Serum creatinine measurement (mass/volume)Ordered By: Deshawn Woo on 12-11-2024 Creatinine [Mass/Vol] 0.87 mg/dL 0.70-1.20 [facility] Serum globulin measurementOr dered By: Deshawn Woo on 12-11-2024 Globulin (S) [Mass/Vol] 2.8 g/dL 2.2-4.2 [facility] Serum glucose measurement (m ass/volume)Ordered By: Deshawn Woo on 12-11-2024 Glucose [Mass/Vol] 91 mg/dL 70-99 [facility] Serum or plasma alanine jose otransferase (ALT) measurementOrdered By: Deshawn Woo on 12-11-2024 ALT [Catalytic activity/Vol] 18 U/L <47 [facility] Serum or plasma albumin chelo urement (mass/volume)Ordered By: Deshawn Woo on 12-11-2024 Albumin [Mass/Vol] 4.4 g/dL 3.5-5.0 [facility] Serum or plasma albumin/glob ulin mass ratioOrdered By: Deshawn Woo on 12-11-2024 Albumin/Globulin [Mass ratio] 1.5 {ratio} 0.9-2.4 [facility] Serum or plasma alkaline isis sphatase measurementOrdered By: Deshawn Woo on 12-11-2024 ALP [Catalytic activity/Vol] 86 U/L 40-129 [facility] Serum or plasma calcium chelo urement (mass/volume)Ordered By: Deshawn Woo on 12-11-2024 Calcium [Mass/Vol] 9.6 mg/dL 7.6-11.0 [facility] Serum or plasma cholesterol in HDL measurement (mass/volume)Ordered By: Deshawn Woo on 12-11-2024 Cholesterol in HDL [Mass/Vol] 69 mg/dL >40 [facility] Comment on above: National Cholesterol Education Program (NCEP) guidelines:<40 mg/dL: Low HDL-cholesterol (major risk factor for CHD)>= 60 mg/dL: High HDL-cholesterol (negative risk factor for CHD)HDL-cholesterol is affected by a number of factors, e.g. smoking, exercise, hormones, sex and age. Serum or plasma cholesterol measurement (mass/volume)Ordered By: Deshawn Woo on 12-11-2024 Cholesterol [Mass/Vol] 243 mg/dL High <201 [facility] Comment on above: Cholesterol level, D esirable <200 mg/dLBorderline high cholesterol 200-239 mg/dLHigh cholesterol >=240 mg/dLRecommendations of the NCEP Adult Treatment Panel for the following risk-cutoff thresholds for the [place] population. Serum or plasma urea nitroge n measurement (mass/volume)Ordered By: Deshawn Woo on 12-11-2024 Urea nitrogen [Mass/Vol] 17 mg/dL 4-19 [facility] Sodium levelOrdered By: Deshawn Woo on 12-11-2024 Sodium [Moles/Vol] 138 mmol/L 133-145 [facility] TSH DL <= 0.005 mIU/L QnOrde red By: Deshawn Woo on 12-11-2024 TSH Qn 0.973 uIU/mL 0.300-4.200 [facility] Thyroid Stim Hormone (TSH)on 12-11-2024 TSH 0.973 uIU/mL Normal 0.300-4.200 [facility] Comment on above: Performed By: #### L 501.5200, L500.4050, L501.9910, L100.0100, L501.9520, L500.4100 #### [facility] [address] [place], [address] Total proteinOrdered By: Sonja Woo on 12-11-2024 Protein [Mass/Vol] 7.2 g/dL 5.9-8.4 [facility] Triglycerides measurementOrd ered By: Deshawn Woo on 12-11-2024 Triglyceride [Mass/Vol] 82 mg/dL <199 [facility] Comment on above: The drugs N-Acetylcy steine and Metamizole may falsely depress this assay. Normal range: <150 mg/dLBorderline High: 150-199 mg/dLHigh: 200-499 mg/dLVery High: >500 mg/dL White blood cell (WBC) count Ordered By: Deshawn Woo on 12-11-2024 WBC (Bld) [#/Vol] 7.6 10*3/uL 4.4-11.0 [facility] CT CARDIAC SCORINGon 023 CT CARDIAC SCORING Patient Name: ROBER VALENCIA STUDY: CT CARDIAC SCORING; 09/15/2022 9:28 am INDICATION: Hyperlipidemia, unspecified. COMPARISON: None. ACCESSION NUMBER(S): [id number] ORDERING CLINICIAN: HAILE FISCHER TECHNIQUE: Using prospective ECG gating, limited CT scan of the coronary arteries was performed without intravenous contrast. Coronary calcium scoring was performed according to the method of Agatston. FINDINGS: The score and distribution of calcium in the coronary arteries is as follows: LM: 0. LAD: 91.5. LCx: 40.7. RCA: 114.9. Total: 247.2. The visualized segments of the lungs are normally expanded. 4 mm anterior left lung nodule image 26. The visualized mid/lower ascending thoracic aorta measures 4 cm in diameter. The heart is normal in size. No pericardial effusion is present. Mildly prominent nonspecific paratracheal nodes up to 8 mm short axis. The visualized subdiaphragmatic structures appear grossly intact. IMPRESSION: 1. Coronary artery calcium score of 247.2 *. 2. 4 mm anterior left lung nodule , likely benign. No further follow-up is required, however, if the patient has high risk factors for primary lung malignancy, follow-up noncontrast CT scan chest in 12 months may be obtained. (Clif Robbins et al., Guidelines for management of incidental pulmonary nodules detected on CT images: From the Fleischner Society 2017, Radiology. 2017 Cj;284 (1):228-243.) [id number] 3. Mild aneurysmal dilatation ascending thoracic aorta up to 4 cm. 4. Additional findings as above. *Coronary artery calcium scoring may be helpful in predicting the risk for future coronary heart disease events. According to the [place] [employer] Clinical Expert Consensus Task Force, such testing provides important prognostic information in patients with more than one coronary heart disease risk factor. The coronary artery calcium score correlates with the annual risk of a non-fatal myocardial infarction or coronary heart disease . Coronary artery score Annual Risk 0-99 0.4% 100-399 1.3% >400 2.4% These three breakpoints correspond to lower, intermediate and high risk states for future coronary events. Such information should be used, along with appropriate clinical judgment, to make decisions regarding the intensity of risk factor management strategies to treat blood lipids and to modify other non-lipid coronary risk factors. Reference: [place] P et al. Circulation. 2007; 115:402-426 Electronically signed by: AUNG PEACOCK, Normal [facility] percentageon 2021 Chloride [Moles/Vol] 105 mmol/L 98-[address] [facility] Work Phone: Cholesterol [Mass/Vol] 218 mg/dL <200 [place] [facility] Work Phone: Comment on above: <200 mg/dL Desirable 200-240 mg/dL Borderline >240 mg/dL High Risk Glucose [Mass/Vol] 83 mg/dL 74-106 [place] [facility] Work Phone: Potassium [Moles/Vol] 3.9 mmol/L 3.5-5.1 [facility] Work Phone: Sodium [Moles/Vol] 139 mmol/L 136-145 [facility] Work Phone: Triglyceride [Mass/Vol] 56 mg/dL [facility] Work Phone: Comment on above: The drugs N-Acetylcy steine and Metamizole may falsely depress this assay.Serum Triglycerides Reference Interval Normal <150 mg/dL Borderline high 150 - 199 mg/dL High 200 - 499 mg/dL Very High > or = 500 mg/dL Laboratory - Chemistry and C hemistry - challengeon 08-11-2021 CO2 [Moles/Vol] 28.0 mmol/L 21.0-32.0 [facility] Work Phone: Urea nitrogen/Creatinine [Mass ratio] 20.5 mg/mg 01-11 [facility] Work Phone: No Panel Informationon 08-11 Estimated GFR (MDRD) Amer 132 mL/min >60 [facility] Work Phone: Comment on above: GFR Calc Estimated GFR (MDRD) Non-Af Amer 109 mL/min >60 [facility] Work Phone: Comment on above: Non- GFR Calc Serum or plasma calcium chelo urement (mass/volume)on 08-11-2021 Calcium [Mass/Vol] 9.5 mg/dL 8.5-10.1 [facility] Work Phone: Serum or plasma cholesterol in HDL measurement (mass/volume)on 08-11-2021 Cholesterol in HDL [Mass/Vol] 61 mg/dL [facility] Work Phone: Comment on above: The drugs N-Acetylcy steine and Metamizole may falsely depress this assay. Reference Range HDL <40 mg/dL Low HDL Cholesterol HDL >or= 60 mg/dL High HDL Cholesterol Serum or plasma cholesterol in VLDL measurement (mass/volume)on 08-11-2021 Cholesterol in VLDL [Mass/Vol] 11 mg/dL 5-40 [facility] Work Phone: Serum or plasma creatinine m easurement (mass/volume)on 08-11-2021 Creatinine [Mass/Vol] 0.78 mg/dL 0.70-1.30 [facility] Work Phone: Comment on above: The validity of the calculated GFR & GFRAA in patients over 70 years has not been determined. Clinical correlation is essential. Serum or plasma low density lipoprotein (LDL) cholesterol measurement (mass/volume)on 08-11-2021 Cholesterol in LDL [Mass/Vol] 146 mg/dL 0-130 [facility] Work Phone: Serum or plasma urea nitroge n measurement (mass/volume)on 08-11-2021 Urea nitrogen [Mass/Vol] 16 mg/dL 7-18 [facility] Work Phone: Thin prep Papanicolaou smear with manual screeningon 08-11-2021 Thin prep Papanicolaou smear with manual screening 6 5-15 [facility] Work Phone: Office Visit: S/P Robotic Ri ght inguinal hernia repairon 09-24-2016 Documentation of current medications (procedure) Done Invalid Interpretation Code [facility] [employer] Work Phone: Fall risk assessment No [facility] [employer] Work Phone: Protein mass conc Done [facility] [employer] Work Phone: Tobacco smoking status NHIS Never [facility] [employer] Work Phone: Tobacco smoking status NHIS Former smoker [facility] [employer] Work Phone: Tobacco use [facility] Former smoker Invalid Interpretation Code [facility] [employer] Work Phone: Office Visit: Right side Ing uinal Herniaon 08-07-2016 Documentation of current medications (procedure) Done Invalid Interpretation Code [facility] [employer] Work Phone: Fall risk assessment No [facility] [employer] Work Phone: Protein mass conc Done [facility] [employer] Work Phone: Tobacco smoking status NHIS Never [facility] [employer] Work Phone: Tobacco smoking status NHIS Former smoker [facility] [employer] Work Phone: Tobacco use [facility] Former smoker Invalid Interpretation Code [facility] [employer] Work Phone: Vital Signs Date Time Vital Sign Value Performing Clinician Facility 01-08-2025 06:56-0400 Body mass index (BMI) [Ratio] 23.6 kg/m2 Dr. Deshawn Woo MD Work Phone: [facility] 01-08-2025 06:56-0400 Body weight 72.[address] Deshawn Woo MD Work Phone: [facility] 01-08-2025 06:56-0400 Diastolic blood pressure 84 mm[Hg] Dr. Deshawn Woo MD Work Phone: [facility] 01-08-2025 06:56-0400 Heart rate 50 /min Dr. Deshawn Woo MD Work Phone: [facility] 01-08-2025 06:56-0400 Respiratory rate 18 /min Dr. Deshawn Woo MD Work Phone: [facility] 01-08-2025 06:56-0400 SaO2% (BldA) [Mass fraction] 99 % Dr. Deshawn Woo MD Work Phone: [facility] 01-08-2025 06:56-0400 Systolic blood pressure 121 mm[Hg] Dr. Deshawn Woo MD Work Phone: [facility] 09-24-2016 11:17-0400 BMI (Body Mass Index) 24.95 kg/m2 Fanny Blackwood RN RN [facility] [employer] Work Phone: 09-24-2016 11:17-0400 Body Temperature 98.1 [degF] Fanny Blackwood RN RN [facility] [employer] Work Phone: 09-24-2016 11:17-0400 BP Diastolic 81 mm[Hg] Fanny Blackwood RN RN [facility] [employer] Work Phone: 09-24-2016 11:17-0400 BP Systolic 121 mm[Hg] Fanny Blackwood RN RN [facility] [employer] Work Phone: 09-24-2016 11:17-0400 BSA (Body Surface Area) 1.92 m2 Fanny Blackwood RN RN [facility] [employer] Work Phone: 09-24-2016 11:17-0400 Height 175.26 cm Fanny Blackwood RN RN [facility] [employer] Work Phone: 09-24-2016 11:17-0400 Pulse (Heart Rate) 67 /min Fanny Blackwood RN RN [facility] Work Phone: 09-24-2016 11:17-0400 Pulse Oximetry 97 % Fanny Blackwood RN RN [facility] [employer] Work Phone: 09-24-2016 11:17-0400 Respiratory Rate 16 /min Fanny Blackwood RN RN [facility] [employer] Work Phone: 09-24-2016 11:17-0400 Weight 76.66 kg Fanny Blackwood RN RN [facility] [employer] Work Phone: 08-07-2016 09:23-0400 BMI (Body Mass Index) 24.81 kg/m2 Fanny Blackwood RN RN [facility] [employer] Work Phone: 08-07-2016 09:23-0400 Body Temperature 97.6 [degF] Fanny Blakcwood RN RN [facility] [employer] Work Phone: 08-07-2016 09:23-0400 Body Temperature 97.59 [degF] Fanny Blackwood RN RN [facility] [employer] Work Phone: 08-07-2016 09:23-0400 BP Diastolic 88 mm[Hg] Fanny Blackwood RN RN [facility] [employer] Work Phone: 08-07-2016 09:23-0400 BP Systolic 138 mm[Hg] Fanny Blackwood RN RN [facility] [employer] Work Phone: 08-07-2016 09:23-0400 BSA (Body Surface Area) 1.92 m2 Fanny Blackwood RN RN [facility] Work Phone: 08-07-2016 09:23-0400 Height 175.26 cm Fanny Blackwood RN RN [facility] Work Phone: 08-07-2016 09:23-0400 Pulse (Heart Rate) 75 /min Fanny Blackwood RN RN [facility] Work Phone: 08-07-2016 09:23-0400 Pulse Oximetry 99 % Fanny Blackwood RN RN [facility] Work Phone: 08-07-2016 09:23-0400 Respiratory Rate 16 /min Fanny Blackwood RN RN [facility] Work Phone: 08-07-2016 09:23-0400 Weight 76.2 kg Fanny Blackwood RN RN [facility] Work Phone: Encounters Encounter Date Encounter Type Care Provider Facility Start: 02-05-2025 ambulatory Anil [place] Facility :[facility] Start: 01-08-2025 End: 01-08-[address] Anil Rutledge MD -[facility] Work Phone: Start: 01-08-2025 End: 01-08-2025 ambulatory Anil [place] Facility:[facility] Start: 12-24-2024 Encounter for genera l adult medical examination without abnormal findings Deshawn Woo [facility] Start: 12-11-2024 End: 12-11-[address] Deshawn Woo MD Work Phone: -Laboratory [facility] Start: 12-11-2024 End: 12-11-[address] Deshawn Woo MD -Laboratory [facility] Start: 12-11-2024 End: 12-11-2024 ambulatory Deshawn Woo Facility:[facility] Start: 09-15-2022 ambulatory Provider Pending Facili ty:[id number] Start: 08-11-2021 End: 08-11-2021 Patient encounter procedure [facility] Procedures Date Procedure Procedure Detail Performing Clinician Start: 12-11-2024 Prostate specific antigen measurement Dr. Deshawn Woo MD Work Phone: Comment on above: This test was perfor med using the [employer] tPSA method. Measured values of a patient sample can vary depending on the testing procedure used. PSA values determined on patient samples by different testing procedures cannot be used interchangeably. If there is a change in PSA assays while monitoring therapy, sequential testing should be performed to confirm baseline values. Start: 08-07-2016 End: 08-07-2016 Follow Up Appt Other Rosalie Ho Work Phone: Start: 01-25-2016 End: 01-25-2016 Follow Up Appt Other Rosalie Ho Work Phone: Start: 01-25-2016 Screening for malign ant neoplasm of colon Screening, colon cancer Alexandru Gutierrez MD Plan of Treatment Date Care Activity Detail Author Start: 01-08-2025 End: 01-08-2025 Evaluation of diagnostic study results [facility] Start: 09-24-2016 End: 09-24-2016 Appointment Appointment [facility] [employer] Work Phone: Start: 09-24-2016 End: 09-24-2016 Follow-up visit Follow Up as needed [facility] [employer] Work Phone: Start: 09-11-2016 End: 09-11-2016 Appointment Appointment [facility] [employer] Work Phone: Start: 08-07-2016 End: 08-07-2016 Appointment Appointment [facility] [employer] Work Phone: Start: 08-07-2016 End: 08-07-2016 Follow Up Appt Other Follow Up Appt Other [facility] [employer] Work Phone: Start: 01-25-2016 End: 01-25-2016 Diagnostic colonoscopy Colonoscopy [facility] [employer] Work Phone: Start: 01-25-2016 End: 01-25-2016 Follow Up Appt Other Follow Up Appt Other [facility] [employer] Work Phone: Start: 01-25-2016 End: 03-09-2016 Primary Care Physician Primary Care Physician Deshawn Ross MD, [facility], [address], [place], [address] [facility] Work Phone: [facility] Payers Date Payer Category Payer Self-pay [id number] 2024 Unknown [id number] 2015 Unknown SELF PAY INSURANCE [id number] 1965 Unknown [id number] Unknown [id number] Unknown [id number] [id number] Unknown [id number] [id number] Unknown [id number] [id number] Social History Date Type Detail Facility Start: 09-06-2016 Tobacco smoking stat [facility] Unknown if ever smoked [facility] Work Phone: Start: 1965 Sex Assigned At Male [facility] Start: 09-06-2016 End: 12-31-2024 Tobacco smoking status NHIS Ex-smoker (finding) [facility] Sex Male [facility] Progress note 01-08-2025 Note Date & Type Note Facility 01-08-2025 Progress note [facility] Evaluation note Note Date & Type Note Facility Evaluation note No assessment information availa ble [facility] Work Phone: Evaluation note Note Date & Type Note Facility Evaluation note Diagnosis Onset Date Resolution Palpitations acute December 8:51am Paroxysmal atrial fibrillation acute January 08 8:51am [facility] Work Phone: Progress note Note Date & Type Note Facility Progress note Note Date/Time January 08, 2025 9:43[facility] [address] [place] [address] OFFICE VISIT Date of Service: 01/08/25 MR#: [id number] Acct: [id number] Name: ROBER VALENCIA Jr. Rep # : [id number] : 1965 Provider: Dr. Anurag Rutledge MD Age/Sex: 59/M Location: [facility] Status: Signed HPI HPI History of Present Illness Details: Patient is very pleasant 59-year-old white male that comes with his today for new patient visit for paroxysmal atrial fibrillation. The patient started to notice back in the summer that when he was working outside and was hot and probably dehydrated that he had fluttering in his chest. He subsequently underwent a 7-day event monitor that showed 7% of the time he was in atrial fibrillation with the longest episode lasting 5 hours. The patient was started on Eliquis and has been on metoprolol now for about a week. He was noticing intermittent episodes until he started taking the metoprolol andnow he has not noticed any over the last week. He continues to stay well-hydrated with electrolytes, he has stopped multiple holistic supplements that hewas on, and he is stopped alcohol and limited his caffeine. Patient does not have a significant family history he is not hypertensive he is hyperlipidemic and he is on red yeast rice. The patient is not a smoker and he is not diabetic. The patient has not had an echocardiogram. His ECG in the office today shows sinus bradycardia at 50 bpm and otherwise is normal. Patient reports he is doing very well in his home environment he occasionally notices some left lateral chest discomfort this is not with activity is only when he is resting and thinking about things. He is able to exercise and do hisactives a day living without any restrictions. Intake Vital Signs 01/08/25 06:56 Height 5 ft 9 in Weight: 160 lb BMI 23.6 BP 121/84 H Blood Pressure Location Lt brachial Position Sitting Respiration 18 Pulse 50 L Pulse Source Monitor Pulse Oximetry (%) 99 Intake Visit Reasons: PALPITATIONS VS. 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: No Is patient in pain?: No Allergies No Known Allergies Allergy (Verified 01/08/25 08:57) Medications ?Medication ?Instructions ?Recorded ?Confirmed ?Type oxycodone-acetaminophen 5 mg-325 1 - 2 tab PO Q4H PRN PRN Pain #15 09/11/16 01/08/25 Rx mg tablet tabs Blood sugar support PO DAILY 12/31/24 12/31/24 H istory Cholesterol Shield PO DAILY 12/31/24 12/31/24 H istory MSM PO BID 12/31/24 12/31/24 His tory NAC PO DAILY 12/31/24 01/08/25 H istory Sympt-X Plus PO BID 12/31/24 12/31/24 His tory Ultra Prostate Formula PO DAILY 12/31/24 12/31/24 H istory calcium 167 mg-vitamin D3 1.67 1 cap PO DAILY 12/31/24 12/31/24 History mcg-magnesium 83 mg capsule coQ10 (ubiquinol) 100 mg capsule 100 mg PO BID 5 12/31/24 History (Qunol Erich CoQ10) magnesium citrate 100 mg tablet 100 mg PO BID 12/31/24 12/31/24 History niacin 500 mg tablet 250 mg PO QDAY 12/31/2412/17 History red yeast rice 600 mg capsule 600 mg PO BID 12/31/24 1 History xijwwg-dkaxzixdu-gihhiter-dextrose g PO DAILY 12/31/24 12/31/24 History 10.6 mEq-4.7mEq/8.5 gram powdr pack (Pediatric Electrolyte) soybean, fermented 50 mg capsule 100 mg PO DAILY 12/3112/31/24 History (Nattokinase) aspirin 325 mg tablet (Dino 325 mg PO QDAY #30 tabs 1 01/08/25 Rx Aspirin) metoprolol succinate 25 mg 25 mg PO BID #180 tabs 12/2301/08/25 Rx tablet,extended release 24 hr Have you fallen in the past year?: No PFSH Medical History Palpitations Surgical History History of hernia repair Social History Smoking Status: Former smoker alcohol intake: current substance use type: does not use ROS Const Const: Negative for fatigue, weakness, headache(s) or frequent falls Eyes Eyes: Negative for blurry vision ENT ENT: Negative for headache(s), dizziness or Nosebleed/epistaxis Cardio Chest Pain: No Palpitations: No Edema: None Muscle aches with walking: None Resp Respiratory: Negative for SOB with activity, SOB at rest or SOB orthopnea\SOB lying down GI GI: Negative nausea, vomiting, heartburn, bright, red blood in stools or black,tarry stools : Negative for hematuria Neuro Neuro: Negative for dizziness, lightheadedness, near syncope, syncope, frequent falls, headache(s), weakness or blurry vision Endo Endo: Negative for fatigue Cardiology Exam Const Appearance: cooperative, healthy appearing, comfortable, no acute distress and well developed Head Head: normal to inspection Eyes General: appearance normal, both eyes and all related structures Neck Neck: normal visual inspection and no JVD Chest Chest inspection: normal inspection of the chest Cardio Rate: bradycardic Rhythm: regular rhythm GI GI: normal to inspection Neuro General: patient alert and patient oriented x3 Extremities Lower Extremity Edema: None: Bilateral Psych Psychological: normal affect Supplemental Info Supplemental Information Labs: LDL Cholesterol, (0-130) 138 mg/dL H HDL Cholesterol, (40-) 69 mg/dL Cholesterol, (<=200) 243 mg/dL H Triglycerides, (-199) 82 mg/dL Past Visits: Cardiology Visit Today Assessment and Plan Assessment and Plan (1) Paroxysmal atrial fibrillation: Status: Acute Plan: Patient has a history of paroxysmal atrial fibrillation. His longest episode lasted 5 hours on his 7-day event monitor. He has had frequent episodes some ofwhich have lasted several hours to a day and at times back in the summer. He has changed to where he is now staying well-hydrated with electrolyte solutions,he has stopped all of his supplements at this point in time, and he is limited his caffeine and alcohol intake. He is also started on metoprolol succinate 25 mg every morning and has had no recurrence of his atrial fibrillation over the past week since he has been on metoprolol. The patient's [id number] score equals 0 and I would recommend that he stop theEliquis to be placed on an aspirin daily. I went over this in detail with the patient and his . They should hold onto the Eliquis that they already have. The patient needs to have an echocardiogram done to evaluate structural heart disease. This will be ordered. I did recommend for long-term monitoring that he obtain a wearable such as an [employer] Fitbit or Taylor device. (2) Palpitations: Status: Acute Plan: Patient's palpitations are consistent with his atrial fibrillation he is aware when he is in atrial fibs. Orders: Orders 12 Lead EKG performed by [facility] Today R00.2 - Palpitations Echo Complete Today I48.0 - Paroxysmal atrial fibrillation, R00.2 - Palpitations, R06.02 - Shortness of breath Medications: New aspirin (Dino Aspirin) 325 mg PO QDAY 30 tabs 3RF metoprolol succinate ER 25 mg PO BID 180 tabs 3RF Discontinued apixaban (Eliquis) Discontinued Reason: Order Changed 5 mg PO BID hydrochlorothiazide Discontinued Reason: Order Changed 25 mg PO DAILY Plan 1. 2D echocardiogram. 2. Will follow-up with the patient by phone with results of the echo. 3. Patient will follow-up in [facility] office in 6 months and as needed. Plan Details Additional Comments: This note was generated with [employer] dictation software. It may contain incorrectwords, spelling, and punctuation that were not noted in checking the note beforesigning. Follow Up: 6 Months (With ARACELI and as needed) Coding Level of Care Code Off vis,new,level 3 Diagnoses Paroxysmal atrial fibrillation I48.0 Palpitations R00.2 Coding Level of Care Code Off vis,new,level 3 Diagnoses Paroxysmal atrial fibrillation I48.0 Palpitations R00.2 Clinical Quality Measures Falls Risk Screening/Assistive Devices Have you fallen in the past year?: No 01/08/25 0949 <Electronically signed by Anil steen MD> Date _ Anil Rutledge MD Cosign Signature: Date (if applicable) CC: Dr. Deshawn Woo MD ~ [facility] Work Phone: Reason for referral (narrative) Note Date & Type Note Facility Reason for referral (narrative) No reason for referral information available [facility] Work Phone: Advance Directives Advance Directive Response Recorded Date/ Time Advance Directives No February 8:46am Living Will No September 06, 2016 11:32am Power of Gospel Singer No September 06 7 11:32am Advance Directive Response Recorded Date/ Time Advance Directives No February 8:46am Summary Purpose Family History No Family History Records FoundNo Family History Records Found Chief Complaint and Reason for Visit Chief Complaint Admit Date PALPITATIONS VS. AFIB, January 08 8:51am Reason for Visit Admit Date Palpitations January 08, 2025 8 :51am Paroxysmal atrial fibrillation December 232024 8:51am Additional Source Comments Goals (unrecognized section and content) Goals may be documented in a n alternate sectionGoals may be documented in an alternate sectionGoals may be documented in an alternate section (unrecognized sect ion and content) No Status Records FoundNo Status Records Found INFORMATION SOURCE (unrecogn ized section and content) DATE CREATED AUTHOR 09/16/2022 [facility] DATE CREATED AUTHOR AUTHOR'S ORGANIZ ATION 01/13/2025 [facility] Care Teams (unrecognized sec tion and content) Team Status: Active Member Role/Relationship Status Dates Dr. Deshawn Woo MD Primary care physician Active Team Status: Inactive Member Role/Relationship Status Dates Dr. Deshawn Woo MD Primary care physician Active Start: December 11, 2024 End: December 11, 2024 Dr. Deshawn Woo MD Attending physician Active Start: December 11, 2024 End: December 11, 2024 Team Status: Inactive Member Role/Relationship Status Dates Dr. Deshawn Woo MD Primary care physician Active Start: January 08, 2025 End: January 08, 2025 Dr. Deshawn Woo MD Referring Provider Active Start: January 08, 2025 End: January 08, 2025 Dr. Anil Rutledge MD Attending physician Active Start: January 08, 2025 End: January 08, 2025 FOR RECORDS PERTAINING TO PATIENTS WHO ARE OR HAVE BEEN ENROLLED IN A CHEMICAL DEPENDENCY/SUBSTANCEABUSE PROGRAM, SOME INFORMATION MAY BE OMITTED. This clinical summary was aggregated from multiple sources. Caution should be exercised in using it in the provision of clinical care. This summary normalizes information from multiple sources, and as a consequence, information in this document may materially change the coding, format and clinical context of patient data. In addition, data may be omitted in some cases. CLINICAL DECISIONS SHOULD BE BASED ON THE PRIMARY CLINICAL RECORDS. [facility]. provides no warranty or guarantee of the accuracy or completeness of information in this document.
== END | disposition home or self-care (01) ==
LOC: CVS 14:44
PROVIDERS: PCP Family Medicine; Referring Provider Internal Medicine Cardiovascular Disease; Visit Provider Internal Medicine Cardiovascular Disease
DX: R06.02 Shortness of breath (principal); I48.0 Paroxysmal atrial fibrillation; R00.2 Palpitations
CPT/HCPCS: 93306